=== PATIENT | male | born 1995 | race Hispanic/Latino ===

== ENCOUNTER 2020-08-29 11:42 | Emergency (ER) | payer OTHER ==
[~2020-08-29] VITALS: Ht 177.8 cm; Wt 92.3 kg
[2020-08-29] MEDS ORDERED: IBUP200C27 PO (11:57)
[2020-08-29] MEDS ORDERED: LIDOCAINE 5% (LIDODERM) PATCH TD ONE (14:05)
[2020-08-29] MEDS ORDERED: CYCLOBENZAPRINE 10MG TABLET PO ONE (14:05)
[2020-08-29] MEDS ORDERED: KETOROLAC 30 MG/ML 1ML VIAL IM ONE (14:05)
--- NOTE | 2020-08-29 15:31 | REP ---
INDICATION: low back pain radiating to LLE. COMPARISON: None. TECHNIQUE: Helical scanning is acquired and 4 mm axial images re-formatted. Coronal and sagittal MPR images are provided FINDINGS: Digital preliminary slitting and shipping supervisor radiograph shows no abnormality. Lumbar vertebral body heights are preserved. Alignment is normal. Disc spaces are maintained. Pedicles and posterior elements are intact. There is no evidence of spondylolysis or spondylolisthesis. No extra vertebral abnormality is noted. There is mild central bulging of the posterior margin of the L4-5 disc. No focal disc protrusion is seen. No neural foraminal narrowing is seen on either side. No other disc protrusion is noted. IMPRESSION: Mild central disc bulging L4-5. Otherwise normal CT study of the lumbar spine. No bony destructive lesion. No spinal stenosis or foraminal narrowing is appreciated. <Electronically signed by Dionte Larsen > 08/29/20 1521
[2020-08-29] MEDS ORDERED: CYCL5TAB PO (15:35)
[2020-08-29] MEDS ORDERED: LIDO5DIS41 TOP (15:35)
[2020-08-29] MEDS ORDERED: IBUP80TA PO (15:35)
[2020-08-29 15:44] VITALS: BP 130/74
[2020-08-29] MEDS ORDERED: **NOTE PATIENT COMMENT** MISC XX SCH (21:00)
[2020-08-29] MEDS ORDERED: **NOTE PATIENT COMMENT** MISC XX ONE (21:00)
== END 2020-08-29 15:46 | disposition home or self-care (01) ==
LOC: M ED 11:42
DX: S39.012A Strain of muscle, fascia and tendon of lower back, initial encounter (principal); X58.XXXA Exposure to other specified factors, initial encounter; Y92.89 Other specified places as the place of occurrence of the external cause; M51.37 Other intervertebral disc degeneration, lumbosacral region; M51.27 Other intervertebral disc displacement, lumbosacral region
CPT/HCPCS: 72131; 96372; 99283; J1885